=== PATIENT | female | born 1990 | race African-American/Black ===

== ENCOUNTER 2020-08-14 16:07 | Emergency (ER) | payer MEDICAID, SELFPAY ==
[2020-08-14 16:25] VITALS: BP 121/62; PULSE 72; RESP 16; TEMP 37.2; O2SAT 99; BMI 27.4
--- NOTE | 2020-08-14 16:53 | ED.GENADULT ---
HPI - General Adult General Chief complaint: General Medical Stated complaint: CONGESTION Time Seen by Provider: 08/14/20 16:53 History of Present Illness HPI narrative: Patient complains of right ear pain, sinus congestion, sinus pain, runny nose for 3 days There is no cough no shortness of breath no fever no chills, symptoms are mild Related Data Previous Rx's Medication Instructions Recorded amoxicillin 500 mg PO TID 10 Days #30 cap 08/14/20 cetirizine 10 mg PO DAILY PRN #14 cap 08/14/20 ciprofloxacin-hydrocortisone 3 drp OTIC (EARS) BID PRN 7 Days 08/14/20 [Cipro HC] #10 ml ibuprofen 600 mg PO Q6H PRN #20 tab 08/14/20 Allergies Allergy/AdvReac Type Severity Reaction Status Date / Time oxycodone [From PERCOCET] Allergy Unknown ITCHY Unverified 06/14/20 19:32 Review of Systems Review of Systems: ROS is positive for right ear pain, runny nose, mild dry cough There is no headache there is no confusion no fever no chills no weakness, there is no sore throat, there is no chest pain shortness of breath or palpitations There is no abdominal pain There is no skin rash There is no leg swelling or calf pain Neuro no weakness or dizziness or problems walking There are no urinary symptoms Yes all other systems are reviewed and are negative PMFSH Past Medical History Source: nursing notes reviewed Medical History (Updated 08/15/20 @ 00:00 by Background Daemon) No known health problems Social History Social History Alcohol intake: never Smoked in Last 30 Days: No Substance Use Type: Marijuana Any prior treatment program specific to substance use: No Advance Directives: No Advance Directives Information Provided: Yes Physical Exam Vital Signs: Vital Signs: Last Vital Signs Temp 99.0 F 08/14/20 16:25 Pulse 72 08/14/20 16:25 Resp 16 08/14/20 16:25 BP 121/62 08/14/20 16:25 Pulse Ox 99 08/14/20 16:25 Body Mass Index 27.4 The patient is in no acute distress comfortable cooperative, A&O x3 The right ear is red with a cloudy tympanic membrane the canal is normal open with no wax or discharge Left ear is normal The eyes are clear with no redness or discharge The pharynx is clear with no redness, no tonsillar swelling, no exudate, no drooling, well-hydrated The neck is supple without lymphadenopathy The chest is clear with full equal symmetrical breath sounds Heart no murmur Skin no rashes Extremities full range of motion x4 Neuro no focal deficits Course Course Course Narrative: Patient is comfortable throughout visit ambulatory speaks full sentences and is treated for otitis media and COVID swab was done Discharge Plan Discharge Clinical Impression: Otitis externa Patient Disposition: Home, Self-Care Additional Instructions: We are treating for an infected ear canal For symptoms of congestion you can use Afrin spray for relief of nasal congestion at night, but it can only be used for 5-7 days, you can also use Sudafed Return any time any worse condition or any concerns Prescriptions: New Cipro HC 0.2-1 % drops,suspension 3 drp otic (ears) BID PRN (Reason: right ear canal infection) 7 Days Qty: 10 RF: 0 ibuprofen 600 mg tablet 600 mg PO Q6H PRN (Reason: pain) Qty: 20 RF: 0 cetirizine 10 mg capsule 10 mg PO DAILY PRN (Reason: allergy symptoms, congestion) Qty: 14 RF: 0 amoxicillin 500 mg capsule 500 mg PO TID 10 Days Qty: 30 RF: 0 Stand Alone Forms: Work/School Release Interventions: ED Discharge Assessment Last Done: 08/14/20 17:06 Discharge Date/Time: 08/14/20 17:25
== END 2020-08-14 17:25 | disposition home or self-care (01) ==
PROVIDERS: Emergency Provider Emergency Medicine
DX: H60.501 Unspecified acute noninfective otitis externa, right ear (principal); H92.01 Otalgia, right ear; J34.89 Other specified disorders of nose and nasal sinuses; Z79.899 Other long term (current) drug therapy; F12.90 Cannabis use, unspecified, uncomplicated; Z20.828 Contact with and (suspected) exposure to other viral communicable diseases
CPT/HCPCS: 99283; U0003

== ENCOUNTER 2020-09-22 13:25 | Emergency (ER) | payer MEDICAID, SELFPAY ==
[2020-09-22 14:09] VITALS: BP 113/70; PULSE 76; RESP 16; TEMP 36.9; O2SAT 98; BMI 26.6
== END 2020-09-22 18:07 | disposition left against medical advice (07) ==
PROVIDERS: Emergency Provider Emergency Medicine
DX: R51.9 Headache, unspecified (principal)
CPT/HCPCS: 99282

== ENCOUNTER 2021-02-20 21:50 | Emergency (ER) | payer MEDICAID, SELFPAY ==
[2021-02-20 21:51] VITALS: BP 139/92; PULSE 74; RESP 16; TEMP 36.6; O2SAT 99; BMI 28.3
--- NOTE | 2021-02-20 22:37 | ED.DENTAL ---
HPI - Dental/Oral General Chief complaint: Dental/Oral Stated complaint: toothache Time Seen by Provider: 02/20/21 22:27 Source: patient Mode of arrival: ambulatory Limitations: no limitations History of Present Illness HPI Narrative: Patient presents to ED for left upper molar pain. Patient was supposed to have a root canal in her left upper molar last year, but never followed up. Patient states left upper molar pain for the past 3 days. Patient states no facial swelling, drooling, shortness of breath, fever, chills, any recent trauma to the face. MD Complaint: tooth pain Teeth map: 1. Related Data Previous Rx's Medication Instructions Recorded amoxicillin 500 mg PO TID 10 Days #30 cap 08/14/20 cetirizine 10 mg PO DAILY PRN #14 cap 08/14/20 ciprofloxacin-hydrocortisone 3 drp OTIC (EARS) BID PRN 7 Days 08/14/20 [Cipro HC] #10 ml ibuprofen 600 mg PO Q6H PRN #20 tab 08/14/20 amoxicillin-pot clavulanate 1 tab PO Q12H #20 tab 02/20/21 [Augmentin] tramadol 50 mg PO TID PRN #9 tab 02/20/21 Allergies Allergy/AdvReac Type Severity Reaction Status Date / Time oxycodone [From PERCOCET] AdvReac Unknown ITCHY Unverified 02/20/21 21:59 Review of Systems Review of Systems: Yes all other systems are reviewed and are negative Constitutional: Constitutional: Reports as per HPI and Reports no additional constitutional complaints Eyes: Eyes: Reports as per HPI and Reports no additional eye complaints ENT: Reports system reviewed and no additional complaints, except as documented and Reports as per HPI Comments: toothache Cardiovascular: Cardiovascular: Reports as per HPI and Reports no additional cardiovascular complaints Respiratory: Respiratory: Reports as per HPI and Reports no additional respiratory complaints Gastrointestinal: Gastrointestinal: Reports as per HPI and Reports no additional gastrointestinal complaints Genitourinary: Genitourinary: Reports no additional female genitourinary complaints and Reports as per HPI Musculoskeletal: Musculoskeletal: Reports no additional musculoskeletal complaints and Reports as per HPI Neurologic: Reports system reviewed and no additional complaints, except as documented and Reports as per HPI Psychiatric: Psychiatric: Reports no additional psychiatric complaints and Reports as per HPI [facility] Past Medical History Medical History (Updated 02/21/21 @ 00:01 by Background Daemon) No known health problems Social History Social History Alcohol intake: never Substance Use Type: Marijuana Advance Directives: No Advance Directives Information Provided: No Patient : No Physical Exam Vital Signs: Vital Signs: Last Vital Signs Temp 97.8 F 02/20/21 21:51 Pulse 74 02/20/21 21:51 Resp 16 02/20/21 21:51 BP 139/92 H 02/20/21 21:51 Pulse Ox 99 02/20/21 21:51 Body Mass Index 28.3 Const: General: cooperative, healthy appearing, comfortable, no acute distress, well developed, alert, awake and Physically active Orientation/consciousness: patient oriented x3 HENMT: Other: negative for facial swelling, dental abscess, drooling, loose tooth, neck swelling, or uvula swelling. Positive left upper molar tenderness on palpation but negative for gum swelling, pus discharge, or loose tooth. Head: Yes normal to inspection, Yes No palpable skull fracture present, Yes normocephalic and Yes atraumatic Eyes: General: appearance normal, both eyes and all related structures Neck: Neck: Yes normal visual inspection, Yes full ROM, Yes no lymphadenopathy, Yes no meningeal signs, Yes trachea midline, Yes supple and No tender Chest: Chest palpation & inspection: normal inspection of the chest and normal palpation of entire chest wall Resp: Effort & Inspection: normal respiratory effort and able to speak in complete sentences Auscultation: clear to auscultation bilaterally Cardio: Jugular venous distension: no JVD Heart sounds: S1 normal heart sound present and S2 normal heart sound present GI: Inspection: Yes normal to inspection and No abdominal wall ecchymosis Palpation (GI): Soft to palpation, not firm, nontender, no guarding and not rigid : General: No CVA tenderness and Yes no CVA tenderness Back/Spine/Pelvis: Back: no CVA tenderness, No CVA tenderness and No back tenderness Skin: General skin exam: no rashes or lesions noted and elasticity normal Neuro: General: patient oriented x3, gait normal, no meningeal signs and CN's II-XI intact bilaterally Cranial nerves: Yes CN's II-XII intact bilaterally Extrem: General: Yes normal to inspection and Yes full ROM Psych: Appearance: grossly normal, well kempt and not disheveled Course Course Course Narrative: Tooth ache. Reevaluation(s) Reevaluation #1: Patient discharged with antibiotics and pain meds. Not suspecting any retropharyngeal abscess, or dental abscess MDM - Dental/Oral MDM Narrative Medical decision making narrative: Tooth ache Discharge Plan Discharge Clinical Impression: Toothache Patient Disposition: Home, Self-Care Instructions: Toothache (ED) Additional Instructions: Return to the ED immediately for facial swelling, drooling, shortness of breath, worsening tooth pain, ear pain, worsening headache, or any other concerning symptoms. Please follow-up with the dentist Prescriptions: New amoxicillin-pot clavulanate [Augmentin] 875-125 mg tablet 1 tab PO Q12H Qty: 20 RF: 0 tramadol 50 mg tablet 50 mg PO TID PRN (Reason: pain) Qty: 9 RF: 0 No Action Cipro HC 0.2-1 % drops,suspension 3 drp otic (ears) BID PRN (Reason: right ear canal infection) 7 Days Qty: 10 RF: 0 ibuprofen 600 mg tablet 600 mg PO Q6H PRN (Reason: pain) Qty: 20 RF: 0 cetirizine 10 mg capsule 10 mg PO DAILY PRN (Reason: allergy symptoms, congestion) Qty: 14 RF: 0 amoxicillin 500 mg capsule 500 mg PO TID 10 Days Qty: 30 RF: 0 Interventions: ED Discharge Assessment Last Done: 02/20/21 23:01 Discharge Date/Time: 02/20/21 23:03 Print Language: Tristanian
[2021-02-20] MEDS: Ketorolac Tromethamine 30 MG/ML VIAL IM (22:40)
== END 2021-02-20 23:03 | disposition home or self-care (01) ==
PROVIDERS: Emergency Provider Internal Medicine; PCP Nurse Practitioner Family
DX: K08.89 Other specified disorders of teeth and supporting structures (principal)
CPT/HCPCS: 96372; 99283; J1885

== ENCOUNTER 2021-06-16 11:31 | Emergency (ER) | payer MEDICAID, SELFPAY ==
--- NOTE | ~2021-06-16 | CT_ITS ---
EXAMINATION: CT ABDOMEN AND PELVIS WITH CONTRAST CLINICAL INFORMATION: Left-sided abdominal pain. COMPARISON: None. TECHNIQUE: Multidetector CT volumetric acquisition of the abdomen and pelvis was performed after the administration of 85 mL of intravenous Omnipaque 350. The data set was reformatted in the sagittal and coronal planes and reviewed on an independent workstation. This CT examination was performed using dose optimization techniques as appropriate, variously including the following: *Automated exposure control *Adjustment of mA and/or kV according to patient size (this includes techniques or standardized protocols for targeted exams where dose is matched to indication/reason for exam; i.e. extremities or head) *Use of iterative reconstruction technique DLP: 616 mGy-cm. FINDINGS: LOWER CHEST: Included lung bases unremarkable. LIVER, GALLBLADDER, BILIARY TREE: Liver normal size and attenuation. No focal cystic or solid mass or intra-or extrahepatic ductal dilatation. Hepatic and portal veins patent. Gallbladder partially distended and within normal limits. PANCREAS: Normal. No ductal dilatation, mass, or surrounding stranding. SPLEEN: Normal size and appearance. Splenic vein patent. ADRENAL GLANDS AND KIDNEYS: Adrenal glands normal. Kidneys bilaterally symmetric in size and function. No focal mass, hydronephrosis, nephrolithiasis or perinephric stranding. URETERS AND BLADDER: Ureters decompressed and within normal limits. Bladder partially distended and within normal limits. PELVIC ORGANS: Vaginal tampon is seen in place. The uterus is anteverted and anteflexed and enlarged with heterogeneous enhancement pattern seen. Superimposed small enhancing nodules are seen, possibly small fibroids. Physiologic cystic changes in both ovaries. No suspicious adnexal mass. GASTROINTESTINAL TRACT: Normal. Small and large bowel loops decompressed. Appendix in right lower quadrant normal. LYMPHOVASCULAR STRUCTURES: Abdominal aorta normal in caliber. No periaortic collections. No abdominal or pelvic adenopathy or free fluid collection. BONES: There is a focal lytic lesion in the left iliac bone with sclerotic margins, suggesting an indolent etiology, such as a small bone cyst No suspicious bone findings. CT/CT abdomen pelvis w con IMPRESSION: 1. Mildly enlarged uterus with heterogeneous enhancement pattern seen. Findings are suboptimally assessed on CT scan and further evaluation with pelvic ultrasound is recommended. There may be small uterine fibroids. 2. Benign-appearing lytic lesion in the left iliac bone, likely a bone cyst.
[2021-06-16 11:51] VITALS: BP 127/73; PULSE 74; RESP 16; TEMP 36.1; O2SAT 98; BMI 28.8
--- NOTE | 2021-06-16 12:15 | ED_ITS ---
HPI - Abdominal Pain General Chief Complaint: Abdominal Pain Stated Complaint: abd pain Time Seen by Provider: 06/16/21 12:12 History of Present Illness HPI narrative: Patient is a 31-year-old female presents today with having abdominal pain for the last 2 weeks. The pain is dull is diffuse over the entire abdomen now somewhat worse at the left periumbilical area. There is no fever no chills no nausea no vomiting. No cough no congestion. Patient is vaccinated for COVID. Patient denies any pain on urination. Denies any change in bowel movement. No dizziness. No nausea. Patient from home no vaginal discharge. One partner no condoms. Does not think she is her last menstrual period was May 15. Related Data Previous Rx's Medication Instructions Recorded amoxicillin 500 mg capsule 500 mg PO TID 10 Days #30 cap 08/14/20 cetirizine 10 mg capsule 10 mg PO DAILY PRN #14 cap 08/14/20 ciprofloxacin 0.2 %-hydrocortisone 3 drp OTIC (EARS) BID PRN 7 Days 08/14/20 1 % ear drops,suspension (Cipro HC) #10 ml ibuprofen 600 mg tablet 600 mg PO Q6H PRN #20 tab 08/14/20 amoxicillin 875 mg-potassium 1 tab PO Q12H #20 tab 02/20/21 clavulanate 125 mg tablet (Augmentin) tramadol 50 mg tablet 50 mg PO TID PRN #9 tab 02/20/21 Allergies Allergy/AdvReac Type Severity Reaction Status Date / Time oxycodone [From PERCOCET] AdvReac Unknown ITCHY Unverified 02/20/21 21:59 Review of Systems Review of Systems No fever no chills no chest pain or shortness of breath or diaphoresis All systems reviewed otherwise negative Physical Exam Vital Signs: Vital Signs: Last Vital Signs Temp 97 F 06/16/21 11:51 Pulse 74 06/16/21 11:51 Resp 16 06/16/21 11:51 BP 127/73 06/16/21 11:51 Pulse Ox 98 06/16/21 11:51 Body Mass Index 28.8 Appearance: Alert. Oriented X3. No acute distress. Eyes: Pupils equal, round and reactive to light. ENT: Pharynx normal. Neck: Normal inspection. Neck supple. No lymph nodes noted. No crepitus CVS: Normal heart rate and rhythm. Pulses normal. Normal S1 and S2 Respiratory: No respiratory distress. Breath sounds normal. No Wheezing. No rales Abdomen: Soft and nontender. No rigidity. No distention. good BS x4 Skin: Skin warm and dry. Normal skin color. Normal skin turgor. Extremities: No lower extremity edema. Neurovascular intact to all extremities. No Lacerations. No Rash Neuro: Oriented X 3. No motor deficit. No sensory deficit. Moving all extermities. No slurred speech MDM - Abdominal Pain MDM Narrative Medical decision making narrative: Patient well-appearing. Urine showed no evidence of infection. White count is normal. Electrolytes normal. Patient's LFTs are normal. No evidence of biliary disease. CT scan of the abdomen showed no abscess no perforation. No diverticulitis. No appendicitis. It did show a possible fibroid. 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 Will follow-up closely on a outpatient basis. In stable condition. Differential Diagnosis Differential diagnosis: Likely abdominal pain, bowel perforation, calculus of kidney, constipation, diverticulitis, gastroenteritis, gastritis, mesenteric ischemia, ovarian cyst, pancreatitis, peptic ulcer disease, renal colic and small bowel obstruction Medical Records Attestation: I reviewed the patient's medical records. Lab Data Attestation: I reviewed the patient's lab results. Result diagrams: 06/16/21 12:32 06/16/21 14:08 Labs: Lab Results 06/16/21 06/16/21 06/16/21 Range/Units 12:32 12:33 12:33 WBC 4.1 L (4.8-10.8) X10*3/uL RBC 4.40 (4.20-5.50) X10*6/uL Hgb 12.4 (12.0-16.0) g/dl Hct 37.6 (37-47) % MCV 85.5 (80-98) fL MCH 28.2 (27.0-33.0) pg MCHC 33.0 (31.0-35.0) g/dl RDW 15.0 (11.0-16.0) % Plt Count 310 (160-400) X10*3/uL MPV 10.7 (9.4-12.3) fL Immature Gran % (Auto) 0.0 (0.0-0.4) % Neut % (Auto) 41.7 L (45-73) % Lymph % (Auto) 47.8 H (20-40) % [place] % (Auto) 8.5 (2-11) % Eos % (Auto) 1.0 (0-4) % Baso % (Auto) 1.0 (0-2) % Lymph # (Auto) 2.0 (1.2-4.9) X10*3/uL [place] # (Auto) 0.4 (0.1-1.2) X10*3/uL Eos # (Auto) 0.0 (0.0-0.4) X10*3/uL Baso # (Auto) 0.0 (0.0-0.2) X10*3/uL Abs Immat Gran (auto) 0.00 (0.00-0.03) X10*3/uL Absolute Neuts (auto) 1.7 L (2.0-8.3) X10*3/uL Absolute Nucleated RBC 0.000 (0.0-0.012) X10*3/uL Nucleated RBC % (auto) 0.0 (0.0-0.2) /100WBC Sodium (135-145) mmol/L Potassium (3.3-5.1) mmol/L Chloride (96-108) mmol/L Carbon Dioxide (22-29) mmol/L Anion Gap (12-20) BUN (9-16) mg/dL Creatinine (0.5-1.4) mg/dL Estim Creat Clear Calc Estimated GFR Random Glucose (60-115) mg/dL Calcium (8.4-10.2) mg/dL Total Bilirubin (0.0-1.0) mg/dL Direct Bilirubin (0.0-0.5) mg/dL AST (5-31) U/L ALT (0-31) U/L Alkaline Phosphatase (39-117) U/L Total Protein (6.5-8.0) g/dL Albumin (3.5-5.0) g/dL Lipase (8-78) U/L Beta HCG, Quant mIU/mL Urine Color YELLOW Urine Appearance CLEAR Urine pH 6.0 (5.0-8.0) Ur Specific Rea >= 1.030 H (1.005-1.025) Urine Protein NEG (NEG-TRACE) MG/DL Urine Glucose (UA) NEG (NEG) MG/DL Urine Ketones NEG (NEG) MG/DL Urine Blood NEG (NEG) Urine Nitrite NEG (NEG) Ur Leukocyte Esterase NEG (NEG) Urine RBC 0-2 (0) /HPF Urine WBC 0-2 (0-4) /HPF Ur Squamous Epith Cells 2+ /LPF Urine Bacteria TRACE /LPF Urine Mucus 2+ /LPF Urine Test NEGATIVE (NEGATIVE) 06/16/21 06/16/21 Range/Units 14:08 14:08 WBC (4.8-10.8) X10*3/uL RBC (4.20-5.50) X10*6/uL Hgb (12.0-16.0) g/dl Hct (37-47) % MCV (80-98) fL MCH (27.0-33.0) pg MCHC (31.0-35.0) g/dl RDW (11.0-16.0) % Plt Count (160-400) X10*3/uL MPV (9.4-12.3) fL Immature Gran % (Auto) (0.0-0.4) % Neut % (Auto) (45-73) % Lymph % (Auto) (20-40) % [place] % (Auto) (2-11) % Eos % (Auto) (0-4) % Baso % (Auto) (0-2) % Lymph # (Auto) (1.2-4.9) X10*3/uL [place] # (Auto) (0.1-1.2) X10*3/uL Eos # (Auto) (0.0-0.4) X10*3/uL Baso # (Auto) (0.0-0.2) X10*3/uL Abs Immat Gran (auto) (0.00-0.03) X10*3/uL Absolute Neuts (auto) (2.0-8.3) X10*3/uL Absolute Nucleated RBC (0.0-0.012) X10*3/uL Nucleated RBC % (auto) (0.0-0.2) /100WBC Sodium 139 (135-145) mmol/L Potassium 4.1 (3.3-5.1) mmol/L Chloride 112 H (96-108) mmol/L Carbon Dioxide 20 L (22-29) mmol/L Anion Gap 11 L (12-20) BUN 9 (9-16) mg/dL Creatinine 0.73 (0.5-1.4) mg/dL Estim Creat Clear Calc 112.5 Estimated GFR > 60 Random Glucose 72 (60-115) mg/dL Calcium 7.8 L (8.4-10.2) mg/dL Total Bilirubin < 0.2 (0.0-1.0) mg/dL Direct Bilirubin < 0.2 (0.0-0.5) mg/dL AST 17 (5-31) U/L ALT 8 (0-31) U/L Alkaline Phosphatase 56 (39-117) U/L Total Protein 6.0 L (6.5-8.0) g/dL Albumin 3.3 L (3.5-5.0) g/dL Lipase 30 (8-78) U/L Beta HCG, Quant < 2 Cancelled mIU/mL Urine Color Urine Appearance Urine pH (5.0-8.0) Ur Specific Rea (1.005-1.025) Urine Protein (NEG-TRACE) MG/DL Urine Glucose (UA) (NEG) MG/DL Urine Ketones (NEG) MG/DL Urine Blood (NEG) Urine Nitrite (NEG) Ur Leukocyte Esterase (NEG) Urine RBC (0) /HPF Urine WBC (0-4) /HPF Ur Squamous Epith Cells /LPF Urine Bacteria /LPF Urine Mucus /LPF Urine Test (NEGATIVE) Discharge Plan Discharge Clinical Impression: Abdominal pain Patient Disposition: Home, Self-Care Instructions: Abdominal Pain (ED) Prescriptions: No Action amoxicillin-pot clavulanate [Augmentin] 875-125 mg tablet 1 tab PO Q12H Qty: 20 RF: 0 tramadol 50 mg tablet 50 mg PO TID PRN (Reason: pain) Qty: 9 RF: 0 Cipro HC 0.2-1 % drops,suspension 3 drp otic (ears) BID PRN (Reason: right ear canal infection) 7 Days Qty: 10 RF: 0 ibuprofen 600 mg tablet 600 mg PO Q6H PRN (Reason: pain) Qty: 20 RF: 0 cetirizine 10 mg capsule 10 mg PO DAILY PRN (Reason: allergy symptoms, congestion) Qty: 14 RF: 0 amoxicillin 500 mg capsule 500 mg PO TID 10 Days Qty: 30 RF: 0 Referrals: Festus Cameron MD [Physician] - 2 days PMF Past Medical History Attestation statement: The following information was validated with the patient. Medical History No known health problems Social History Social History Alcohol intake: never Use of substances other than those prescribed or required for medical reasons: No Substance Use Type: Marijuana Advance Directives: No Advance Directives Information Provided: No
[2021-06-16 12:42] LABS: MANUAL DIFF FLAG NO
[2021-06-16 12:43] LABS: Hematocrit 37.6 % (37-47); Hemoglobin 12.4 g/dl (12.0-16.0); Lymphocytes Percent Auto 47.8 % (20-40); Mean Corpuscular Hemoglobin 28.2 pg (27.0-33.0); Mean Corpuscular Volume 85.5 fL (80-98); Mean Platelet Volume 10.7 fL (9.4-12.3); Monocytes Absolute Auto 0.4 X10*3/uL (0.1-1.2); Monocytes Percent Auto 8.5 % (2-11); Neutrophils Absolute Auto 1.7 X10*3/uL (2.0-8.3); Neutrophils Percent Auto 41.7 % (45-73); Platelet Count 310 X10*3/uL (160-400); White Blood Count 4.1 X10*3/uL (4.8-10.8)
[2021-06-16 12:45] LABS: Appearance Urine CLEAR; Color Urine YELLOW; Glucose Urine UA NEG (NEG); Leukocyte Esterase Urine NEG (NEG); Nitrite Urine NEG (NEG); Specific Gravity - Urine >= 1.030 (1.005-1.025); Urine Blood NEG (NEG); Urine Ketones NEG (NEG); Urine Protein NEG (NEG-TRACE)
[2021-06-16 12:46] LABS: UPreg QC Valid YES; Urine Pregnancy NEGATIVE (NEGATIVE)
[2021-06-16 12:51] LABS: Bacteria Urine TRACE /LPF; Mucus Urine 2+ /LPF; RBC Urine 0-2 /HPF (0); Squamous Epithelial Cell Urine 2+ /LPF; WBC Urine 0-2 /HPF (0-4)
[2021-06-16] MEDS: 0.9 % Sodium Chloride 1,000 ML 999 ML IV (12:53)
[2021-06-16] MEDS: Ketorolac Tromethamine 15 MG/ML VIAL IVPUSH (12:53)
[2021-06-16 14:36] LABS: Alanine Aminotransferase 8 U/L (0-31); Albumin Level 3.3 g/dL (3.5-5.0); Alkaline Phosphatase 56 U/L (39-117); Anion Gap 11 (12-20); Aspartate Amino Transferase 17 U/L (5-31); Bilirubin Direct < 0.2 mg/dL (0.0-0.5); Bilirubin Total < 0.2 mg/dL (0.0-1.0); Blood Urea Nitrogen 9 mg/dL (9-16); Calcium 7.8 mg/dL (8.4-10.2); Carbon Dioxide 20 mmol/L (22-29); Chloride 112 mmol/L (96-108); Creatinine Clr Calc Pharmacy 112.5; Estimated Glomerular Filt Rate > 60; Glucose Random 72 mg/dL (60-115); HCG Quantitative < 2 mIU/mL; Lipase 30 U/L (8-78); Potassium 4.1 mmol/L (3.3-5.1); Sodium 139 mmol/L (135-145)
[2021-06-16] MEDS: iohexoL 350 MG/ML 100 ML INFUS..BTL IV (15:02)
[2021-06-16 16:06] VITALS: BP 118/76; PULSE 61; RESP 18; TEMP 36.7; O2SAT 98
== END 2021-06-16 16:16 | disposition home or self-care (01) ==
PROVIDERS: Emergency Provider Emergency Medicine Emergency Medical Services; PCP Nurse Practitioner Family
DX: R10.9 Unspecified abdominal pain (principal); Z79.899 Other long term (current) drug therapy
CPT/HCPCS: 36415; 74177; 80048; 80076; 81001; 81003; 81025; 83690; 84702; 85025; 96361; 96374; 99284; 99285; J1885; Q9967

== ENCOUNTER 2021-08-18 20:07 | Emergency (ER) | payer MEDICAID, SELFPAY ==
[2021-08-18 20:39] VITALS: BP 115/96; PULSE 72; RESP 18; TEMP 36.9; O2SAT 99; BMI 28.3
[2021-08-18 20:58] LABS: Strep A Nucleic Acid Negative (Negative)
== END 2021-08-19 00:11 | disposition left against medical advice (07) ==
PROVIDERS: Emergency Provider Emergency Medicine; PCP Nurse Practitioner Family
DX: J02.9 Acute pharyngitis, unspecified (principal); H92.02 Otalgia, left ear
CPT/HCPCS: 36415; 87651; 99282; 99283

== ENCOUNTER 2022-01-16 19:24 | Emergency (ER) | payer MEDICAID, SELFPAY ==
[2022-01-16 19:32] VITALS: BP 117/70; PULSE 74; RESP 18; TEMP 36.3; O2SAT 99; BMI 27.4
--- NOTE | 2022-01-16 20:06 | ED_ITS ---
HPI - General Adult General Chief complaint: General Medical Stated complaint: sinus infection? right ear ache Time Seen by Provider: 01/16/22 20:06 Source: patient Mode of arrival: ambulatory Limitations: no limitations History of Present Illness HPI narrative: This is a 32-year-old female no significant medical history presenting to the emergency department with facial congestion/pressure, rhinorrhea, sore throat, subjective fevers and chills x3 days worsening. Patient tells me that this feels like her typical sinus infection that she gets every year. She has been taking Sudafed and [id number] medications with little to no relief. Patient tells me she feels like she is having severe pressure to her face, and she also tells me she is having hard time breathing out of her nose because her nose feels clogged. She also tells me that at times bilateral ears feel clogged. She denies shortness of breath, nausea, vomiting, chest pain, headache, vision changes, dizziness. Onset (ago): day(s) (3) Location: face Severity: moderate Pain Consistency: constant Relieving factors: none Exacerbating factors: none Associated symptoms: denies other symptoms Treatments prior to arrival: none Related Data Previous Rx's Medication Instructions Recorded amoxicillin 500 mg capsule 500 mg PO TID 10 Days #30 cap 08/14/20 cetirizine 10 mg capsule 10 mg PO DAILY PRN #14 cap 08/14/20 ciprofloxacin 0.2 %-hydrocortisone 3 drp OTIC (EARS) BID PRN 7 Days 08/14/20 1 % ear drops,suspension (Cipro HC) #10 ml ibuprofen 600 mg tablet 600 mg PO Q6H PRN #20 tab 08/14/20 amoxicillin 875 mg-potassium 1 tab PO Q12H #20 tab 02/20/21 clavulanate 125 mg tablet (Augmentin) tramadol 50 mg tablet 50 mg PO TID PRN #9 tab 02/20/21 amoxicillin 875 mg-potassium 1 tab PO BID 10 Days #20 tab 01/16/22 clavulanate 125 mg tablet fluticasone propionate 50 1 spray INTRANASAL DAILY PRN #16 g 01/16/22 mcg/actuation nasal spray,suspension (Children's Flonase Allergy Relief) prednisone 20 mg tablet 20 mg PO DAILY 5 Days #5 tab 01/16/22 Allergies Allergy/AdvReac Type Severity Reaction Status Date / Time oxycodone [From PERCOCET] AdvReac Unknown ITCHY Unverified 02/20/21 21:59 Review of Systems Review of Systems: Constitutional : No Weight loss, + Fever, + Chills, + Fatigue, + Malaise ENT/Mouth : + sore throat, + Rhinorrhea, + congestion Eyes: No Eye Pain, No Swelling, No Redness Cardiovascular : No Chest Pain, No SOB, No Dyspnea on Exertion, No Orthopnea, No Edema, No Palpitations Respiratory : No Cough, No Sputum, No Wheezing Gastrointestinal : No Nausea, No Vomiting, No Diarrhea, No Constipation, No a bdominal Pain, No Hematochezia, No Melena Genitourinary : No Dysuria, No Urinary Frequency, No Hematuria, Musculoskeletal : No joint pain, No Myalgias, No Joint Swelling Skin : No Skin Lesions, No rash Neuro : No Weakness, No Numbness, No Dizziness, No Headache Psych : No Anxiety/Panic, No Depression All other systems reviewed and are negative Yes all other systems are reviewed and are negative ON LICENSE OF [facility] Past Medical History Attestation statement: The following information was validated with the patient. Source: old records reviewed and nursing notes reviewed Medical History No known health problems Social History Social History Alcohol intake: never Substance Use Type: Marijuana Advance Directives: No Physical Exam ED Vital Signs: Vital Signs - 24 hr 01/16/22 19:32 Temperature 97.3 F Pulse Rate 74 Respiratory Rate 18 Blood Pressure 117/70 Pulse Oximetry 99 BMI result Body Mass Index 27.4 Vital signs stable Appearance: Alert.? Oriented X3.? No acute distress.? Head: Normocephalic, atraumatic, no step-offs or deformities. + discomfort with palpation of sinuses on face. + discomfort with forward bending. No lymphadenopathy. Eyes: Pupils equal, round and reactive to light.? ENT: Pharynx normal.? Neck: Normal inspection.? Neck supple.? No meningeal signs. CVS: Normal heart rate and rhythm.? Pulses normal.? Respiratory: No respiratory distress.? Breath sounds normal.? Abdomen: Soft and nontender.? Skin: Skin warm and dry.? Normal skin color.? Normal skin turgor.? Extremities: No lower extremity edema.? No calf ttp. 5/5 strength to bilateral upper and lower extremities Neuro: Oriented X 3.? No motor deficit.? No sensory deficit. CN 2-12 intact Course Reevaluation(s) Reevaluation #1: Printed prescriptions for patient she will be going home on Augmentin, prednisone and Flonase. Advised her to return with new or worsening symptoms, outlined he is on her discharge. Comfortable discharge home. Time: 20:20 Medical Decision Making [facility] Narrative Medical decision making narrative: 2008 32-year-old female presents with sinus like symptoms x3 days worsening. History of sinus infections yearly. Has tried Sudafed with little to no relief. Upon physical examination she has discomfort with palpation of frontal sinuses and discomfort with forward bending. She reports severe pressure when she bends over. Lungs clear. Regular rate and rhythm. Abdomen soft nontender nondistended. Neuro exam nonfocal. No meningeal signs. Unlikely that this is strep throat, unlikely mono, likely sinusitis. No meningeal signs unlikely meningitis. Medical Records Medical records reviewed: Yes I reviewed the patient's medical records. Lab Data Lab results reviewed: Yes I reviewed the patient's lab results. Critical Care Time Critical Care Time Critical Care Time: No Discharge Plan Discharge Clinical Impression: Sinus infection Patient Disposition: Home, Self-Care Instructions: Sinusitis (ED) Additional Instructions: Take your medications as prescribed. If you were prescribed antibiotics today, it is important that you take your medication to their entirety, do not skip any doses, do not finish them early. Follow-up with your primary care provider this week. Return to the emergency department with new or worsening symptoms. Such as fevers, chills, chest pain, shortness of breath, nausea, vomiting, dizziness, headache, vision changes, lethargy, not eating or drinking, weakness, difficulty breathing or speaking. In case of emergency call 911 Prescriptions: New fluticasone propionate [Children's Flonase Allergy Rlf] 50 mcg/actuation spray,suspension 1 spray intranasal DAILY PRN (Reason: nasal congestion) Qty: 16 0RF Rx Instructions: administer into each nostril amoxicillin-pot clavulanate 875-125 mg tablet 1 tab PO BID 10 Days Qty: 20 0RF prednisone 20 mg tablet 20 mg PO DAILY 5 Days Qty: 5 0RF No Action amoxicillin-pot clavulanate [Augmentin] 875-125 mg tablet 1 tab PO Q12H Qty: 20 0RF tramadol 50 mg tablet 50 mg PO TID PRN (Reason: pain) Qty: 9 0RF Cipro HC 0.2-1 % drops,suspension 3 drp otic (ears) BID PRN (Reason: right ear canal infection) 7 Days Qty: 10 0RF Rx Instructions: Lay on her side, put 3 drops in the right ear and lay on her side for 10 minutes so the drops soak in ibuprofen 600 mg tablet 600 mg PO Q6H PRN (Reason: pain) Qty: 20 0RF cetirizine 10 mg capsule 10 mg PO DAILY PRN (Reason: allergy symptoms, congestion) Qty: 14 0RF amoxicillin 500 mg capsule 500 mg PO TID 10 Days Qty: 30 0RF Referrals: Physician,Unknown J [Primary Care Provider] - 2 days Stand Alone Forms: Work/School Release
== END 2022-01-16 20:31 | disposition home or self-care (01) ==
LOC: HO.ED 20:17
PROVIDERS: Emergency Provider Internal Medicine
DX: J32.9 Chronic sinusitis, unspecified (principal); H92.01 Otalgia, right ear; R50.9 Fever, unspecified
CPT/HCPCS: 99283

== ENCOUNTER 2022-03-03 13:40 | Emergency (ER) | payer MEDICAID, SELFPAY ==
[2022-03-03 13:46] VITALS: BP 152/76; PULSE 73; RESP 18; TEMP 36.6; O2SAT 100; BMI 27.4
[2022-03-03 14:09] LABS: COVID-19 Test Positive (Negative)
[2022-03-03 14:12] LABS: IDNOW Serial# 08D9AD1C; Strep A Nucleic Acid Negative (Negative)
[2022-03-03 14:13] LABS: Influenza A Negative (Negative); Influenza B2 Negative (Negative)
--- NOTE | 2022-03-03 15:55 | ED.URI ---
HPI - URI/Sore Throat General Chief Complaint: General Medical Stated Complaint: sinus infection Time Seen by Provider: 03/03/22 15:37 Source: patient Mode of arrival: ambulatory Limitations: no limitations History of Present Illness HPI Narrative: Patient presents to the emergency department for evaluation of upper respiratory symptoms x1 week. She is experiencing nasal congestion, scratchy throat, intermittent shortness breath. Denies any known sick contacts. Has not been vaccinated for COVID-19 or influenza. Denies fevers, chills, headache, vision changes, neck pain, neck stiffness, chest pain, palpitations, nausea, vomiting, abdominal pain, generalized weakness. Related Data Previous Rx's Medication Instructions Recorded amoxicillin 500 mg capsule 500 mg PO TID 10 Days #30 cap 08/14/20 cetirizine 10 mg capsule 10 mg PO DAILY PRN #14 cap 08/14/20 ciprofloxacin 0.2 %-hydrocortisone 3 drp OTIC (EARS) BID PRN 7 Days 08/14/20 1 % ear drops,suspension (Cipro HC) #10 ml ibuprofen 600 mg tablet 600 mg PO Q6H PRN #20 tab 08/14/20 amoxicillin 875 mg-potassium 1 tab PO Q12H #20 tab 02/20/21 clavulanate 125 mg tablet (Augmentin) tramadol 50 mg tablet 50 mg PO TID PRN #9 tab 02/20/21 amoxicillin 875 mg-potassium 1 tab PO BID 10 Days #20 tab 01/16/22 clavulanate 125 mg tablet fluticasone propionate 50 1 spray INTRANASAL DAILY PRN #16 g 01/16/22 mcg/actuation nasal spray,suspension (Children's Flonase Allergy Relief) prednisone 20 mg tablet 20 mg PO DAILY 5 Days #5 tab 01/16/22 Allergies Allergy/AdvReac Type Severity Reaction Status Date / Time oxycodone [From PERCOCET] AdvReac Unknown ITCHY Unverified 02/20/21 21:59 Review of Systems Review of Systems: Constitutional: No fever. No chills. No weakness. No fatigue. ENT/ Mouth: Positive Ear Pain, positive Nasal Congestion, positive sore throat, No Rhinorrhea, No Swallowing Difficulty Skin: No rash or itching. Cardiovascular: No chest pain. No palpitations. Respiratory: Positive shortness of breath. Positive cough. No sputum production. Gastrointestinal: No nausea. No vomiting. No diarrhea. No abdominal pain. Genitourinary: No burning micturition. No urinary frequency. Neurologic: No headache. No dizziness. No syncope. No numbness or tingling in the extremities. Musculoskeletal: No muscle pain. No back pain. No joint pain or stiffness. Yes all other systems are reviewed and are negative [facility] Past Medical History Attestation statement: The following information was validated with the patient. Source: old records reviewed Medical History No known health problems Social History Social History Alcohol intake: never Substance Use Type: Marijuana Advance Directives: No Advance Directives Information Provided: Yes Physical Exam Vital Signs: Vital Signs: Last Vital Signs Temp 98 F 03/03/22 13:46 Pulse 73 03/03/22 13:46 Resp 18 03/03/22 13:46 BP 152/76 H 03/03/22 13:46 Pulse Ox 100 03/03/22 13:46 BMI result Body Mass Index 27.4 Vital signs have been reviewed as normal and appeared to be correct. Blood pressure normal.? Heart rate normal.? Respiration rate normal. Temperature normal.? Oxygen saturation normal. Appearance: Alert.?Oriented to person, place and time. No acute distress.?Normal affect. Eyes: Pupils equal, round and reactive to light.? ENT: TM normal bilaterally. Pharynx normal.?? Neck: Normal inspection.? Neck supple.??No cervical adenopathy CVS: Heart sounds normal. Normal heart rate and rhythm.? Pulses normal.?? Respiratory: No respiratory distress.? Lung sounds clear to auscultation bilaterally?? Abdomen: Soft and non-tender. Normoactive bowel sounds. Skin: Skin warm and dry.? Normal skin color.? ? Extremities: No lower extremity edema.? Neuro: Moves all extremities spontaneously. Sensation intact bilaterally. No motor deficits. Ambulates with normal steady gait. Course Course Course Narrative: Patient is a 32-year-old female with no significant past medical history, presenting for evaluation of upper respiratory symptoms. COVID-19 testing positive, not vaccinated. At this time history and physical exam not consistent with ACS/PE/pneumonia. Well-appearing, nontoxic, afebrile, no tachycardia or tachypnea/hypoxia. Speaking clear full sentences, ambulatory with steady gait. Discussed conservative treatment including rest, hydration, Tylenol/ibuprofen as needed for fever and body aches, saline nasal spray, humidifier, [id number] cold medication. Advised to follow-up with primary care provider as needed, discussed reasons to return back to the emergency department. All questions were answered. Patient discharged home in stable condition. MDM - URI/Sore Throat Medical Records Attestation: I reviewed the patient's medical records. Lab Data Attestation: I reviewed the patient's lab results. Labs: Lab Results 03/03/22 03/03/22 03/03/22 Range/Units 13:49 13:49 13:49 COVID-19 (NATALIO) Positive A (Negative) COVID-19 Clin Com See Note Influenza Type A (MELLY) Negative (Negative) Influenza Type B (MELLY) Negative (Negative) Influenza A & B Note See Note S. pyogenes GrpA MELLY Negative (Negative) Discharge Plan Discharge Clinical Impression: COVID-19 Patient Disposition: Home, Self-Care Instructions: COVID-19 (Coronavirus Disease 2019) (ED) Additional Instructions: Be sure to rest, stay well hydrated drinking plenty of fluids, eat small frequent meals. Tylenol/ibuprofen can be used as needed for fever/pain. [id number] cold medications may be helpful as well for symptoms. Continue using Flonase Saline nasal spray, humidifier may be helpful for nasal congestion. You may return to the emergency department with any new or worsening symptoms or concerns. Follow-up with your primary care provider as needed. Should remain out of school/ work until symptoms have resolved and have been without a fever for 24 hours without the use of Tylenol or ibuprofen. Prescriptions: No Action amoxicillin-pot clavulanate [Augmentin] 875-125 mg tablet 1 tab PO Q12H Qty: 20 0RF tramadol 50 mg tablet 50 mg PO TID PRN (Reason: pain) Qty: 9 0RF Cipro HC 0.2-1 % drops,suspension 3 drp otic (ears) BID PRN (Reason: right ear canal infection) 7 Days Qty: 10 0RF Rx Instructions: Lay on her side, put 3 drops in the right ear and lay on her side for 10 minutes so the drops soak in ibuprofen 600 mg tablet 600 mg PO Q6H PRN (Reason: pain) Qty: 20 0RF cetirizine 10 mg capsule 10 mg PO DAILY PRN (Reason: allergy symptoms, congestion) Qty: 14 0RF amoxicillin 500 mg capsule 500 mg PO TID 10 Days Qty: 30 0RF fluticasone propionate [Children's Flonase Allergy Rlf] 50 mcg/actuation spray,suspension 1 spray intranasal DAILY PRN (Reason: nasal congestion) Qty: 16 0RF Rx Instructions: administer into each nostril amoxicillin-pot clavulanate 875-125 mg tablet 1 tab PO BID 10 Days Qty: 20 0RF prednisone 20 mg tablet 20 mg PO DAILY 5 Days Qty: 5 0RF Interventions: ED Discharge Assessment Last Done: 03/03/22 16:12 Discharge Date/Time: 03/03/22 16:12
== END 2022-03-03 16:12 | disposition home or self-care (01) ==
LOC: HO.ED 16:09
PROVIDERS: Emergency Provider Student in an Organized Health Care Education/Training Program; PCP Nurse Practitioner Family
DX: U07.1 COVID-19 (principal)
CPT/HCPCS: 36415; 87502; 87635; 87651; 99282; 99283

== ENCOUNTER 2022-06-01 22:18 | Emergency (ER) | payer MEDICAID, SELFPAY ==
--- NOTE | ~2022-06-01 | CT_ITS ---
EXAMINATION: CT ABDOMEN AND PELVIS WITHOUT CONTRAST CLINICAL INFORMATION: Left buttocks and labia numbness COMPARISON: 06/16/2020 TECHNIQUE: Multidetector volumetric imaging was performed from the superior aspect of the liver through the pubic symphysis. Sagittal and coronal reformatted images were obtained on the technologist's workstation. This CT examination was performed using dose optimization techniques as appropriate, variously including the following: *Automated exposure control *Adjustment of mA and/or kV according to patient size (this includes techniques or standardized protocols for targeted exams where dose is matched to indication/reason for exam; i.e. extremities or head) *Use of iterative reconstruction technique DLP: 589 mGy-cm FINDINGS: LUNG BASES: The visualized lung bases are unremarkable. LIVER, GALLBLADDER, AND BILIARY TREE: The liver is normal in size, shape, and attenuation. No focal hepatic lesion or biliary ductal dilatation is present. Gallbladder unremarkable. PANCREAS: Unremarkable. SPLEEN: Unremarkable. ADRENAL GLANDS: Unremarkable. KIDNEYS AND URETERS: The kidneys are normal in size, shape, and attenuation. No hydronephrosis, hydroureter, or calculi seen. No perinephric stranding. BLADDER: Unremarkable. GASTROINTESTINAL TRACT: The small and large bowel are unremarkable. The appendix is unremarkable. ABDOMINAL WALL: No significant hernia is appreciated. LYMPH NODES: Normal. VASCULAR: Unremarkable. PELVIC VISCERA: Uterus redemonstrated bulbous configuration with what I suspect represents a subserosal 8 cm fibroid emanating from the anterior uterus. In the right adnexa, there is a tubular cystic structure measuring approximately 7.8 x 1.5 x 1.2 cm which is new from the prior examination, possibly a hydrosalpinx. Ovaries appear unremarkable. OSSEOUS STRUCTURES: No acute or suspicious osseous abnormalities. Stable lucent lesion in the left lung represent intraosseous hemangioma, lipoma or bone cyst. CT/CT abdomen pelvis wo IV con IMPRESSION: * Right adnexal tubular cystic structure suspicious for a hydrosalpinx, appears new from prior. * Probable large anterior uterine subserosal fibroid. * Consider pelvic ultrasound for further characterization of these findings. * No additional findings of significance within the abdomen or pelvis.
[2022-06-01 22:33] VITALS: BP 128/81; PULSE 70; RESP 18; TEMP 36.9; O2SAT 99; BMI 28.3
[2022-06-01 23:10] LABS: Basophils Absolute Auto 0.1 X10*3/uL (0.0-0.2); Basophils Percent Auto 0.9 % (0-2); Eosinophils Percent Auto 0.6 % (0-4); Hematocrit 36.3 % (37.0-47.0); Hemoglobin 11.7 g/dl (12.0-16.0); Imm Gran Abs Auto 0.01 X10*3/uL (0.00-0.03); Imm Gran Pct Auto 0.2 % (0.0-0.4); Lymphocytes Absolute Auto 2.4 X10*3/uL (1.2-4.9); Lymphocytes Percent Auto 45.9 % (20-40); MANUAL DIFF FLAG NO; Mean Corpuscular HGB Conc 32.2 g/dl (31.0-35.0); Mean Corpuscular Hemoglobin 27.1 pg (27.0-33.0); Mean Corpuscular Volume 84.2 fL (80.0-98.0); Mean Platelet Volume 10.6 fL (9.4-12.3); Monocytes Absolute Auto 0.5 X10*3/uL (0.1-1.2); Monocytes Percent Auto 9.6 % (2-11); Neutrophils Absolute Auto 2.3 x10*3/uL (2.0-8.3); Neutrophils Percent Auto 42.8 % (45-73); Platelet Count 295 X10*3/uL (160-400); Red Blood Count 4.31 X10*6/uL (4.20-5.50); White Blood Count 5.3 X10*3/uL (4.8-10.8)
[2022-06-01 23:18] LABS: D Dimer High Sensitivity < 150 NG/ML
[2022-06-01 23:25] LABS: Alanine Aminotransferase 11 U/L (0-31); Albumin Level 4.2 g/dL (3.5-5.0); Alkaline Phosphatase 74 U/L (39-117); Anion Gap 16 (12-20); Aspartate Amino Transferase 15 U/L (5-31); Bilirubin Total 0.2 mg/dL (0.0-1.0); Blood Urea Nitrogen 13 mg/dL (9-16); Calcium 9.4 mg/dL (8.4-10.2); Carbon Dioxide 21 mmol/L (22-29); Chloride 107 mmol/L (96-108); Creatinine Clr Calc Pharmacy 84.1; Estimated Glomerular Filt Rate > 60; Glucose Random 93 mg/dL (60-115); Potassium 3.9 mmol/L (3.3-5.1); Sodium 140 mmol/L (135-145); Total Protein 7.5 g/dL (6.5-8.0)
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
[2022-06-02 00:12] LABS: C Reactive Protein 0.12 mg/dL (< or = 0.50)
[2022-06-02 00:27] LABS: HCG Quantitative < 2 mIU/mL
[2022-06-02 00:39] LABS: Erythrocyte Sedimentation Rate 9 MM/HR (0-20)
== END 2022-06-02 01:23 | disposition home or self-care (01) ==
PROVIDERS: Physician Assistant; Student in an Organized Health Care Education/Training Program; Emergency Provider Internal Medicine
DX: R20.0 Anesthesia of skin (principal)
CPT/HCPCS: 36415; 74176; 80053; 84702; 85025; 85379; 85652; 86140; 99282; 99283; 99284

== ENCOUNTER 2022-12-24 07:38 | Outpatient (REF) | payer MEDICAID, SELFPAY ==
--- NOTE | ~2022-12-24 | MR_ITS ---
EXAMINATION: MR LUMBAR SPINE WITHOUT CONTRAST CLINICAL INFORMATION: Recurrent lumbar radiculopathy. Left leg pain. COMPARISON: Abdominal CT imaging from 06/16/2021 and 06/02/2022. TECHNIQUE: MRI of the lumbar spine was obtained using routine sequences without contrast. FINDINGS: The marrow signal is homogeneous and the discs are well hydrated. There are no compression fractures or subluxations. The distal cord, conus tip, and cauda equina nerve roots are normal. There is a very mild disc bulge at the L1-L2 level without central canal stenosis or foraminal encroachment. The L2-L3 disc is normal. There is a very mild annular bulge at the L3-L4 level with bulging disc contacting the extraforaminal right L3 nerve root. At the L4-L5 level, there is a mild disc bulge without central canal stenosis. [id number] bilateral foraminal narrowing noted. There is a shallow central disc protrusion at the L5-S1 level and mild hypertrophic facet arthropathy. No central canal stenosis evident. A right posterolateral disc protrusion in combination with facet arthropathy results in significant right foraminal encroachment and distortion of the exiting right L5 nerve root. As seen on prior CT imaging from 06/16/2021 and 06/02/2022, a large soft tissue mass is visible anterior to the uterus with distortion of the bladder. The mass is potentially arising exophytically from the uterus, though difficult to conclusively discerned. On the nondiagnostic localizer sequence, the mass measures 10.5 x 8.3 cm, previously measuring 8.2 x 6.1 cm. MR/MR lumbar spine wo con IMPRESSION: Bulging disc contacting the extraforaminal right L3 nerve root at the L3-L4 level. Mild disc bulge at L4-L5 with [id number] bilateral foraminal narrowing. Shallow central disc protrusion at L5-S1. Hypertrophic facet arthropathy and right posterolateral disc protrusion result in significant right foraminal encroachment and distortion of the exiting right L5 nerve root. Large 10.5 x 8.3 cm mass between the uterus and distorted bladder which when compared to the prior CT studies may represent a large pedunculated and exophytic fibroid. A follow-up dedicated MRI of the pelvis without and with contrast is recommended for further evaluation. Imaging findings reported to Dr. Ballesteros's office staff, Kellee Dunne, who would be texting and conveying the findings to Dr. Ballesteros, as he was not in the office or readily available at 3:05 PM on 12/26/2022.
== END 2022-12-24 07:39 | disposition home or self-care (01) ==
LOC: HO.MRI 07:38
PROVIDERS: PCP Nurse Practitioner Family; Visit Provider Psychiatry & Neurology Neurology
DX: M54.16 Radiculopathy, lumbar region (principal)
CPT/HCPCS: 72148

== ENCOUNTER 2024-03-05 22:46 | Emergency (ER) | payer OTHER, SELFPAY ==
[2024-03-05 22:49] VITALS: BP 119/84; PULSE 72; RESP 16; TEMP 37.4; O2SAT 98; BMI 30.5
--- NOTE | 2024-03-06 00:06 | ED.FEMALEGU ---
HPI - Female Genitourinary General Chief complaint: Urogenital-Female Stated complaint: ? yeast infection Time Seen by Provider: 03/05/24 23:59 Source: patient, RN notes reviewed and old records reviewed Mode of arrival: ambulatory Limitations: no limitations History of Present Illness ED Provider: Zenia HPI Narrative: 34-year-old female presents for evaluation of ?I have a yeast infection. ? Patient reports vaginal swelling and irritation. She also reports whitish vaginal discharge starting yesterday. She denies any abdominal pain, vaginal bleeding. Denies any fevers or chills She reports that she just had a full panel of STI testing including a pelvic exam and blood work last week that was negative She reports a history of yeast infections and states that this feels similar to those in the past She has not had a new sexual partner in over 6 months Related Data Previous Rx's ?Medication ?Instructions ?Recorded amoxicillin 500 mg capsule 500 mg PO TID 10 days #30 caps 08/14/20 cetirizine 10 mg capsule 10 mg PO DAILY PRN allergy 08/14/20 symptoms, congestion #14 caps ciprofloxacin 0.2 %-hydrocortisone 3 drp otic (ears) BID PRN right 08/14/20 1 % ear drops,suspension (Cipro HC) ear canal infection 7 days #10 mL ibuprofen 600 mg tablet 600 mg PO Q6H PRN pain #20 tabs 08/14/20 amoxicillin 875 mg-potassium 1 tab PO Q12H pain #20 tabs 02/20/21 clavulanate 125 mg tablet (Augmentin) tramadol 50 mg tablet 50 mg PO TID PRN pain #9 tabs 02/20/21 amoxicillin 875 mg-potassium 1 tab PO BID 10 days #20 tabs 01/16/22 clavulanate 125 mg tablet fluticasone propionate 50 1 spray intranasal DAILY PRN nasal 01/16/22 mcg/actuation nasal congestion #16 grams spray,suspension (Children's Flonase Allergy Relief) prednisone 20 mg tablet 20 mg PO DAILY 5 days #5 tabs 01/16/22 Allergies Allergy/AdvReac Type Severity Reaction Status Date / Time oxycodone [From PERCOCET] AdvReac Unknown ITCHY Verified 03/05/24 22:52 Review of Systems Constitutional: Constitutional: Denies body ache(s), Denies chills and Denies fever(s) ENT: Denies vertigo and Denies dizziness Cardiovascular: Cardiovascular: Denies dyspnea Respiratory: Respiratory: Denies cough and Denies dyspnea Gastrointestinal: Gastrointestinal: Denies abdominal pain, Denies nausea and Denies vomiting Genitourinary: Genitourinary: Denies difficulty voiding, Denies dysuria, Reports vaginal discharge and Denies vaginal pruritus Comments: Reports vaginal swelling Neurologic: Denies vertigo and Denies dizziness PMF Past Medical History Medical History No known health problems Social History Social History Alcohol intake: never Substance Use Type: Marijuana Physical Exam Vital Signs: Vital Signs: Last Vital Signs Temp 99.3 F 03/05/24 22:49 Pulse 72 03/05/24 22:49 Resp 16 03/05/24 22:49 BP 119/84 03/05/24 22:49 Pulse Ox 98 03/05/24 22:49 O2 Del Method Room Air 03/05/24 22:49 BMI result Body Mass Index 30.5 Const: General: healthy appearing, comfortable, no acute distress, alert and awake Nutritional Appearance: well nourished Orientation/consciousness: patient oriented x3 HEENT: Head: Yes normocephalic and Yes atraumatic Eyes: Eyelids: Yes eyelids normal Conjunctivae: conjunctivae normal Sclerae: sclerae normal Corneas: corneas normal Pupils: Equal, round and reactive pupils present EOM: EOMs intact bilaterally : Other: Deferred Skin: General skin exam: elasticity normal Neuro: General: patient oriented x3 Cranial nerves: Yes Equal, round and reactive pupils present and Yes Bilaterally intact EOM present Cognition (Neuro): normal cognition Medical Decision Making Medical Decision Making MDM Narrative: 34-year-old female presents for evaluation of ?I have a yeast infection. ? She reports last week being tested for STIs including blood work. She denies any burning with urination blood in the urine. Offered pelvic examination versus self swab again she declines that she just had this testing done. We will treat the patient with a 1 time dose of Diflucan Differential Diagnosis Differential Diagnoses: The differential diagnosis associated with the presentation includes Yeast infection Candidiasis UTI Trichomoniasis Bacterial vaginosis Discharge Plan Discharge Clinical Impression: Yeast infection Patient Disposition: Home, Self-Care Instructions: Yeast Infection (ED) Additional Instructions: You were treated for a yeast infection with Diflucan. You may also use [id number] Monistat Follow-up with your primary doctor and your OBGYN Prescriptions: No Action amoxicillin-pot clavulanate [Augmentin] 875-125 mg tablet 1 tab PO Q12H Qty: 20 0RF tramadol 50 mg tablet 50 mg PO TID PRN (Reason: pain) Qty: 9 0RF Cipro HC 0.2-1 % drops,suspension 3 drp otic (ears) BID PRN (Reason: right ear canal infection) 7 Days Qty: 10 0RF Rx Instructions: Lay on her side, put 3 drops in the right ear and lay on her side for 10 minutes so the drops soak in ibuprofen 600 mg tablet 600 mg PO Q6H PRN (Reason: pain) Qty: 20 0RF cetirizine 10 mg capsule 10 mg PO DAILY PRN (Reason: allergy symptoms, congestion) Qty: 14 0RF amoxicillin 500 mg capsule 500 mg PO TID 10 Days Qty: 30 0RF fluticasone propionate [Children's Flonase Allergy Rlf] 50 mcg/actuation spray,suspension 1 spray intranasal DAILY PRN (Reason: nasal congestion) Qty: 16 0RF Rx Instructions: administer into each nostril amoxicillin-pot clavulanate 875-125 mg tablet 1 tab PO BID 10 Days Qty: 20 0RF prednisone 20 mg tablet 20 mg PO DAILY 5 Days Qty: 5 0RF Print Language: Ukrainian
[2024-03-06] MEDS: Fluconazole 100 MG TABLET 200 MG PO (00:23)
[2024-03-06 00:24] VITALS: BP 119/84; PULSE 72; RESP 16; TEMP 37.4; O2SAT 98
== END 2024-03-06 00:25 | disposition home or self-care (01) ==
PROVIDERS: Emergency Provider Student in an Organized Health Care Education/Training Program; PCP Nurse Practitioner Family
DX: B37.31 Acute candidiasis of vulva and vagina (principal); N89.8 Other specified noninflammatory disorders of vagina; F12.90 Cannabis use, unspecified, uncomplicated
CPT/HCPCS: 99282; 99283

== ENCOUNTER 2024-06-09 10:39 | Emergency (ER) | payer SELFPAY ==
--- NOTE | ~2024-06-09 | CT_ITS ---
EXAMINATION: CT ABDOMEN AND PELVIS WITHOUT CONTRAST CLINICAL INFORMATION: Kidney stones. Abdominal pain. Bleeding. COMPARISON: Pelvic ultrasound dated 06/09/2024. CT abdomen and pelvis dated 06/02/2022. TECHNIQUE: Multidetector volumetric imaging was performed from the superior aspect of the liver through the pubic symphysis. Sagittal and coronal reformatted images were obtained on the technologist's workstation. This CT examination was performed using dose optimization techniques as appropriate, variously including the following: *Automated exposure control *Adjustment of mA and/or kV according to patient size (this includes techniques or standardized protocols for targeted exams where dose is matched to indication/reason for exam; i.e. extremities or head) *Use of iterative reconstruction technique DLP: 586 mGy-cm FINDINGS: LUNG BASES: The visualized lung bases are unremarkable. No pleural effusion. Heart size is normal. No pericardial effusion. LIVER, GALLBLADDER, AND BILIARY TREE: The liver is normal in size, shape, and attenuation. No focal hepatic lesion or biliary ductal dilatation is present. The gallbladder is unremarkable with no evidence of radiopaque gallstones, gallbladder wall thickening, or obvious pericholecystic inflammatory changes. PANCREAS: Unremarkable. SPLEEN: Unremarkable. ADRENAL GLANDS: Unremarkable. KIDNEYS AND URETERS: The kidneys are normal in size, shape, and attenuation. No hydronephrosis, hydroureter, or calculi seen. No perinephric stranding. BLADDER: Unremarkable. GASTROINTESTINAL TRACT: The small and large bowel are normal in caliber. There is no pericolonic inflammatory stranding The appendix is not definitively identified. However, there are no inflammatory changes within the right lower quadrant to indicate acute appendicitis. ABDOMINAL WALL: No significant hernia is appreciated. LYMPH NODES: No lymphadenopathy. VASCULAR: Unremarkable. PELVIC VISCERA: The uterus is grossly normal in appearance. The previously identified 8 cm fibroid emanating from the anterior uterus seen on examination dated 06/02/2022 is no longer visualized. No adnexal mass. OSSEOUS STRUCTURES: No acute or suspicious osseous abnormality. There is a stable lucent lesion within the left iliac bone. CT/CT abdomen pelvis wo IV con IMPRESSION: No acute intra-abdominal/intrapelvic abnormality. No renal calculi. Fleischner guidelines were followed. Electronically signed by: Jony Coyne DO 06/09/2024 03:23 PM EDT
--- NOTE | ~2024-06-09 | US_ITS ---
EXAMINATION: US PELVIS CLINICAL INFORMATION: Pelvic pain. Lower abdominal pain. LMP 06/24/2024. COMPARISON: CT abdomen pelvis dated 06/02/2022. TECHNIQUE: Ultrasound of the pelvis is performed using both transabdominal and transvaginal transducers along with Doppler. Transvaginal imaging is performed due to inadequate visualization transabdominally. FINDINGS: Uterus: The uterus is anteverted and measures 7.8 x 3.5 x 4.7 cm. The double wall endometrial thickness is 3.2 mm. The uterus is smooth in contour and has normal myometrial echogenicity. No visible fibroid. Adnexa: Both ovaries are visualized. There is normal color flow to the adnexa. There is no ovarian torsion. There is no pelvic ascites or fluid collection. Right ovary measures 4.1 x 2.3 x 2.0 cm. This correlates with a volume of 10 mL. There is a 1 x 1 x 1 cm cyst. Left ovary measures 4.1 x 3.1 x 2.2 cm. This correlates with a volume of 14.6 mm. There is a 1.1 x 1.1 x 0.8 cm cyst. There is an exophytic cyst measuring 1.6 x 0.9 x 1.6 cm. US/US pelvic ovarian doppler IMPRESSION: The ultrasound appearance of the uterus is normal. No fibroid is identified. Both ovaries are normal in size and demonstrate normal vascular flow. There are bilateral ovarian cysts as described. Electronically signed by: Jony Coyne DO 06/09/2024 02:59 PM EDT
--- NOTE | ~2024-06-09 | US_ITS ---
EXAMINATION: US PELVIS CLINICAL INFORMATION: Pelvic pain. Lower abdominal pain. LMP 06/24/2024. COMPARISON: CT abdomen pelvis dated 06/02/2022. TECHNIQUE: Ultrasound of the pelvis is performed using both transabdominal and transvaginal transducers along with Doppler. Transvaginal imaging is performed due to inadequate visualization transabdominally. FINDINGS: Uterus: The uterus is anteverted and measures 7.8 x 3.5 x 4.7 cm. The double wall endometrial thickness is 3.2 mm. The uterus is smooth in contour and has normal myometrial echogenicity. No visible fibroid. Adnexa: Both ovaries are visualized. There is normal color flow to the adnexa. There is no ovarian torsion. There is no pelvic ascites or fluid collection. Right ovary measures 4.1 x 2.3 x 2.0 cm. This correlates with a volume of 10 mL. There is a 1 x 1 x 1 cm cyst. Left ovary measures 4.1 x 3.1 x 2.2 cm. This correlates with a volume of 14.6 mm. There is a 1.1 x 1.1 x 0.8 cm cyst. There is an exophytic cyst measuring 1.6 x 0.9 x 1.6 cm. US/US pelvic and transvaginal IMPRESSION: The ultrasound appearance of the uterus is normal. No fibroid is identified. Both ovaries are normal in size and demonstrate normal vascular flow. There are bilateral ovarian cysts as described. Electronically signed by: Jony Coyne DO 06/09/2024 02:59 PM EDT
[2024-06-09 11:11] VITALS: BP 106/69; PULSE 61; RESP 18; TEMP 36.2; O2SAT 100; BMI 28.0
--- NOTE | 2024-06-09 11:18 | ED.GENADULT ---
HPI - General Adult General Chief complaint: Vaginal Bleeding Stated complaint: Sharp abd pain Time Seen by Provider: 06/09/24 17:00 Source: patient Mode of arrival: ambulatory Limitations: no limitations History of Present Illness ED Provider: mindi WASHBURN narrative: Patient is a 34-year-old female presenting to the emergency department with complaint of intermittent shooting pains to lower abdomen since this morning and vaginal bleeding which began while she was on her way to the emergency department. States her LMP ended 2 weeks ago and she typically has very regular periods. Denies any other abnormal vaginal discharge. Denies nausea, vomiting, diarrhea. Denies fevers. Denies recent unprotected sex or concern for STIs, states she was just recently tested. MD complaint: abdominal pain, vaginal bleeding Onset (ago): hour(s) Location: abdomen Radiation: non-radiation Severity: severe Quality: sharp Pain Consistency: intermittent Associated symptoms: other (vaginal bleeding) Treatments prior to arrival: none Related Data Previous Rx's ?Medication ?Instructions ?Recorded amoxicillin 500 mg capsule 500 mg PO TID 10 days #30 caps 08/14/20 cetirizine 10 mg capsule 10 mg PO DAILY PRN allergy 08/14/20 symptoms, congestion #14 caps ciprofloxacin 0.2 %-hydrocortisone 3 drp otic (ears) BID PRN right 08/14/20 1 % ear drops,suspension (Cipro HC) ear canal infection 7 days #10 mL ibuprofen 600 mg tablet 600 mg PO Q6H PRN pain #20 tabs 08/14/20 amoxicillin 875 mg-potassium 1 tab PO Q12H pain #20 tabs 02/20/21 clavulanate 125 mg tablet (Augmentin) tramadol 50 mg tablet 50 mg PO TID PRN pain #9 tabs 02/20/21 amoxicillin 875 mg-potassium 1 tab PO BID 10 days #20 tabs 01/16/22 clavulanate 125 mg tablet fluticasone propionate 50 1 spray intranasal DAILY PRN nasal 01/16/22 mcg/actuation nasal congestion #16 grams spray,suspension (Children's Flonase Allergy Relief) prednisone 20 mg tablet 20 mg PO DAILY 5 days #5 tabs 01/16/22 Allergies Allergy/AdvReac Type Severity Reaction Status Date / Time oxycodone [From PERCOCET] AdvReac Unknown ITCHY Verified 06/09/24 11:16 Review of Systems Review of Systems: As per HPI. Yes all other systems are reviewed and are negative Constitutional: Constitutional: Reports as per HPI [facility], [facility] Past Medical History Medical History No known health problems Social History Social History Alcohol intake: never Substance Use Type: Marijuana Advance Directives: No Advance Directives Information Provided: No Do you have a plan to hurt others: No Plan Physical Exam ED Vital Signs: Vital Signs - 24 hr 06/09/24 11:11 06/09/24 16:45 06/09/24 17:12 Temperature 97.2 F 97.1 F 98.2 F Pulse Rate 61 60 62 Respiratory Rate 18 16 20 Blood Pressure 106/69 119/64 106/74 Pulse Oximetry 100 100 Oxygen Delivery Method Room Air Room Air Room Air 06/09/24 17:58 Temperature 98.2 F Pulse Rate 62 Respiratory Rate 20 Blood Pressure 106/74 Pulse Oximetry 100 Oxygen Delivery Method Room Air BMI result Body Mass Index 28.0 Vital signs have been reviewed and appear to be correct. Blood pressure normal. Heart rate normal. Respiratory rate normal. Temperature normal. Oxygen saturation normal. Const General: cooperative, healthy appearing and no acute distress Orientation/consciousness: oriented to person, oriented to place, oriented to time and patient oriented x3 Limitations: no limitations HENMT Head: Yes normocephalic and Yes atraumatic Ears: external ears normal General nose exam: Normal external nose present Face and sinus: Yes face symmetric Mouth: oropharynx normal and moist mucous membranes Throat: Yes uvula midline Eyes Pupils: Equal, round and reactive pupils present Neck Neck: Yes normal visual inspection and Yes supple Resp Effort & Inspection: normal respiratory effort and able to speak in complete sentences Auscultation: clear to auscultation bilaterally Cardio Rate: regular rate Rhythm: regular rhythm Heart sounds: S1 normal heart sound present and S2 normal heart sound present GI Palpation (GI): Soft to palpation, Tenderness to palpation present (GI) (very mild TTP LLQ and RLQ) in the LLQ and in the RLQ, no guarding and No Rebound tenderness present Auscultation: normoactive bowel sounds General: Yes no CVA tenderness Back/Spine/Pelvis Back: no CVA tenderness Skin General skin exam: elasticity normal and turgor normal Neuro General: oriented to person, oriented to place, oriented to time, patient oriented x3, moves all extremities, no focal motor deficits and CN's II-XI intact bilaterally Cranial nerves: Yes Equal, round and reactive pupils present Cognition (Neuro): normal cognition Extrem General: Yes full ROM, Yes no pedal edema and Yes no calf tenderness Psych Mental Status: mental status grossly normal Affect: normal affect Thought process: Normal thought process present Course Course Course Narrative: RME: [employer]One by [employer]. 34 yold female presents to the ED for sudden sharp abdominal pain this morning and while driving to the ED she has vaginal bleeding. patient hemodynamically stable. physical exam positive for bilateral lower abdominal tendernss on palpation. Repeat labs ordered Medical Decision Making Medical Decision Making [facility] Narrative: Patient is a 34-year-old female presenting to the emergency department with complaint of intermittent shooting pains to lower abdomen since this morning and vaginal bleeding which began while she was on her way to the emergency department. On exam patient is awake, A+Ox3, VS WNL, afebrile, normal neurological exam without focal deficits, physical exam findings as above. Given reported symptoms and physical exam findings, initial differential includes ovarian torsion, uterine fibroids, dysfunctional uterine bleeding, leiomyoma, STI, polyps. Labs notable for no leukocytosis, no anemia, normal PT/INR, no significant electrolyte abnormalities. Ultrasound notable for normal uterus, no fibroids, normal ovaries with normal vascular flow, bilateral ovarian cysts. CT A/P notable for no evidence of calculi, no other abnormal findings. My interpretation is in agreement with the radiologist's interpretation. Urinalysis notable for trace leukocytes, 3+ blood, no bacteria, negative. Results discussed with patient and all questions answered. Offered to retest for STIs which patient declined. Patient receives [facility] care through [facility], instructed her to follow up with her AUTOMOTIVE WINDOW TINTER. Return precautions discussed at bedside. Patient verbalized understanding of and agreement with plan. Differential Diagnosis Differential Diagnoses: The differential diagnosis associated with the presentation includes As per [facility] Admission/Observation Consideration of admission/observation: Escalation of care including admission/observation considered Patient would have been admitted to the hospital had their work up had any findings where hospital admission was appropriate and their clinical presentation warranted hospital admission. Lab Data [facility] Lab Attestation statement: I reviewed the patient's lab results. As per [facility] 06/09/24 11:48 06/09/24 11:48 Labs: Lab Results 06/09/24 Range/Units 11:48 WBC 3.6 L (4.8-10.8) X10*3/uL RBC 4.37 (4.20-5.50) X10*6/uL Hgb 12.0 (12.0-16.0) g/dl Hct 36.0 L (37.0-47.0) % MCV 82.4 (80.0-98.0) fL MCH 27.5 (27.0-33.0) pg MCHC 33.3 (31.0-35.0) g/dl RDW 15.9 (11.0-16.0) % Plt Count 313 (160-400) X10*3/uL MPV 9.9 (9.4-12.3) fL Immature Gran % (Auto) 0.3 (0.0-0.4) % Neut % (Auto) 50.7 (45-73) % Lymph % (Auto) 37.4 (20-40) % [place] % (Auto) 9.7 (2-11) % Eos % (Auto) 0.8 (0-4) % Baso % (Auto) 1.1 (0-2) % Lymph # (Auto) 1.4 (1.2-4.9) X10*3/uL [place] # (Auto) 0.4 (0.1-1.2) X10*3/uL Eos # (Auto) 0.0 (0.0-0.4) X10*3/uL Baso # (Auto) 0.0 (0.0-0.2) X10*3/uL Abs Immat Gran (auto) 0.01 (0.00-0.03) X10*3/uL Absolute Neuts (auto) 1.8 L (2.0-8.3) x10*3/uL Absolute Nucleated RBC 0.000 (0.0-0.012) X10*3/uL Nucleated RBC % (auto) 0.0 (0.0-0.2) /100WBC PT 11.9 (11.1-13.3) SEC INR 1.0 (0.9-1.1) APTT 36.0 (26.0-36.8) SEC Sodium 139 (135-145) mmol/L Potassium 3.7 (3.3-5.1) mmol/L Chloride 108 (96-108) mmol/L Carbon Dioxide 23 (22-29) mmol/L Anion Gap 12 (12-20) BUN 12 (9-16) mg/dL Creatinine 0.79 (0.5-1.4) mg/dL Estim Creat Clear Calc 99.7 Estimated GFR > 60 Random Glucose 82 (60-115) mg/dL Calcium 9.3 (8.4-10.2) mg/dL Total Bilirubin 0.3 (0.0-1.0) mg/dL AST 17 (5-31) U/L ALT 10 (0-31) U/L Alkaline Phosphatase 69 (39-117) U/L Total Protein 7.3 (6.5-8.0) g/dL Albumin 4.1 (3.5-5.0) g/dL Beta HCG, Quant < 2 mIU/mL Urine Color Yellow Urine Appearance Clear Urine pH 5.5 (5.0-9.0) Ur Specific [place] 1.025 (1.005-1.025) Urine Protein 30 (1+) H (Neg-Trace) mg/dL Urine Glucose (UA) Negative (Negative) mg/dL Urine Ketones 15 (Negative) mg/dL Urine Blood Large (3+) H (Negative) Urine Nitrite Negative (Negative) Ur Leukocyte Esterase Trace H (Negative) Urine RBC >20 H (0-2) /HPF Urine WBC 0-5 (0-5) /HPF Ur Squamous Epith Cells 6-10 (0-2) /HPF Urine Bacteria None Seen (None Seen) Hyaline Casts 3-5 (0-2) /LPF Urine Test NEGATIVE (NEGATIVE) Independent Interpretation I performed an independent interpretation of an: Ultrasound and CT Scan Interpretation: Ultrasound notable for normal uterus, no fibroids, normal ovaries with normal vascular flow, bilateral ovarian cysts. CT A/P notable for no evidence of calculi, no other abnormal findings. Radiology Impression Discussion of test interpretation with radiology: I have reviewed the radiologist's reading. Radiologist Impression: US/US pelvic and transvaginal IMPRESSION: The ultrasound appearance of the uterus is normal. No fibroid is identified. Both ovaries are normal in size and demonstrate normal vascular flow. There are bilateral ovarian cysts as described. CT/CT abdomen pelvis wo IV con IMPRESSION: No acute intra-abdominal/intrapelvic abnormality. No renal calculi. External Record Review External record reviewed: Inpatient record, Office record and Outpatient record Discharge Plan Discharge Clinical Impression: Dysfunctional uterine bleeding Patient Disposition: Home, Self-Care Instructions: Dysfunctional Uterine Bleeding (ED) Additional Instructions: You were evaluated in the emergency department today for abdominal pain and vaginal bleeding. Your evaluation including labs, urinalysis, ultrasound, and CT scan did not show evidence of conditions requiring emergent medical treatment at this time. We recommend that you follow up with your PHOTOGRAPHIC SPECIALIST this week for further evaluation. Return to the emergency department if you develop severe pain, fever, if you are bleeding through more than one pad per hour, persistent vomiting, or any other concerning symptoms. Prescriptions: No Action amoxicillin-pot clavulanate [Augmentin] 875-125 mg tablet 1 tab PO Q12H Qty: 20 0RF tramadol 50 mg tablet 50 mg PO TID PRN (Reason: pain) Qty: 9 0RF Cipro HC 0.2-1 % drops,suspension 3 drp otic (ears) BID PRN (Reason: right ear canal infection) 7 Days Qty: 10 0RF Rx Instructions: Lay on her side, put 3 drops in the right ear and lay on her side for 10 minutes so the drops soak in ibuprofen 600 mg tablet 600 mg PO Q6H PRN (Reason: pain) Qty: 20 0RF cetirizine 10 mg capsule 10 mg PO DAILY PRN (Reason: allergy symptoms, congestion) Qty: 14 0RF amoxicillin 500 mg capsule 500 mg PO TID 10 Days Qty: 30 0RF fluticasone propionate [Children's Flonase Allergy Rlf] 50 mcg/actuation spray,suspension 1 spray intranasal DAILY PRN (Reason: nasal congestion) Qty: 16 0RF Rx Instructions: administer into each nostril amoxicillin-pot clavulanate 875-125 mg tablet 1 tab PO BID 10 Days Qty: 20 0RF prednisone 20 mg tablet 20 mg PO DAILY 5 Days Qty: 5 0RF Interventions: ED Discharge Assessment Last Done: 06/09/24 17:58 Discharge Date/Time: 06/09/24 17:59 Print Language: Georgian
[2024-06-09 11:52] LABS: MANUAL DIFF FLAG NO
[2024-06-09 11:53] LABS: Basophils Percent Auto 1.1 % (0-2); Eosinophils Percent Auto 0.8 % (0-4); Imm Gran Abs Auto 0.01 X10*3/uL (0.00-0.03); Imm Gran Pct Auto 0.3 % (0.0-0.4); Lymphocytes Absolute Auto 1.4 X10*3/uL (1.2-4.9); Lymphocytes Percent Auto 37.4 % (20-40); Mean Corpuscular HGB Conc 33.3 g/dl (31.0-35.0); Mean Corpuscular Hemoglobin 27.5 pg (27.0-33.0); Mean Corpuscular Volume 82.4 fL (80.0-98.0); Mean Platelet Volume 9.9 fL (9.4-12.3); Monocytes Absolute Auto 0.4 X10*3/uL (0.1-1.2); Monocytes Percent Auto 9.7 % (2-11); Neutrophils Absolute Auto 1.8 x10*3/uL (2.0-8.3); Neutrophils Percent Auto 50.7 % (45-73); Platelet Count 313 X10*3/uL (160-400); Red Blood Count 4.37 X10*6/uL (4.20-5.50); Red Cell Distribution Width 15.9 % (11.0-16.0); White Blood Count 3.6 X10*3/uL (4.8-10.8)
[2024-06-09 11:58] LABS: Appearance Urine Clear; Color Urine Yellow; Glucose Urine UA Negative (Negative); Leukocyte Esterase Urine Trace (Negative); Nitrite Urine Negative (Negative); PH 5.5 (5.0-9.0); Specific Gravity - Urine 1.025 (1.005-1.025); UMIC TRIGGER UACC YES; Urine Blood Large (3+) (Negative); Urine Ketones 15 mg/dL (Negative); Urine Protein 30 (1+) mg/dL (Neg-Trace)
[2024-06-09 12:00] LABS: UPreg QC Valid YES; Urine Pregnancy NEGATIVE (NEGATIVE)
[2024-06-09 12:01] LABS: Bacteria Urine None Seen (None Seen); RBC Urine >20 /HPF (0-2); WBC Urine 0-5 /HPF (0-5)
[2024-06-09 12:02] LABS: Prothrombin Time 11.9 SEC (11.1-13.3)
[2024-06-09 12:16] LABS: Alanine Aminotransferase 10 U/L (0-31); Albumin Level 4.1 g/dL (3.5-5.0); Alkaline Phosphatase 69 U/L (39-117); Anion Gap 12 (12-20); Aspartate Amino Transferase 17 U/L (5-31); Bilirubin Total 0.3 mg/dL (0.0-1.0); Blood Urea Nitrogen 12 mg/dL (9-16); Calcium 9.3 mg/dL (8.4-10.2); Carbon Dioxide 23 mmol/L (22-29); Chloride 108 mmol/L (96-108); Creatinine Clr Calc Pharmacy 99.7; Estimated Glomerular Filt Rate > 60; Glucose Random 82 mg/dL (60-115); HCG Quantitative < 2 mIU/mL; Potassium 3.7 mmol/L (3.3-5.1); Sodium 139 mmol/L (135-145); Total Protein 7.3 g/dL (6.5-8.0)
[2024-06-09 16:45] VITALS: BP 119/64; PULSE 60; RESP 16; TEMP 36.2
[2024-06-09 17:12] VITALS: BP 106/74; PULSE 62; RESP 20; TEMP 36.8; O2SAT 100
[2024-06-09 17:58] VITALS: BP 106/74; PULSE 62; RESP 20; TEMP 36.8; O2SAT 100
== END 2024-06-09 17:59 | disposition home or self-care (01) ==
PROVIDERS: Physician Assistant; Emergency Provider Internal Medicine; PCP Nurse Practitioner Family
DX: N93.8 Other specified abnormal uterine and vaginal bleeding (principal); R10.2 Pelvic and perineal pain; Z79.899 Other long term (current) drug therapy
CPT/HCPCS: 36415; 74176; 76830; 76856; 80053; 81001; 81025; 84702; 85025; 85610; 85730; 93975; 99283; 99284